=== PATIENT | female | born 2000 | race Caucasian/White ===

== ENCOUNTER → 2023-09-12 | Outpatient (CLI) | payer OTHER ==
--- NOTE | 2023-09-12 15:23 | US ---
EXAMINATION TYPE: US pelvic complete DATE OF EXAM: 09/12/2023 COMPARISON: NONE CLINICAL INDICATION: Female, 23 years old with history of N92.0 EXCESS MENSTRUATION L68.0 HURTUISM; right pelvic pain. Depo shot TECHNIQUE: Transabdominal (TA). Date of LMP: unknown. couple of months ago EXAM MEASUREMENTS: Uterus: 6.6 x 2.7 x 4.1 cm Endometrial Stripe: 0.5 cm Right Ovary: 4.8 x 4.7 x 3.6 cm Left Ovary: 3.0 x 2.4 x 2.2 cm 1. Uterus: Anteverted wnl 2. Endometrium: appears wnl 3. Right Ovary: cystic lesion with septation = 3.3 x 3.9 x 3.1cm 4. Left Ovary: follicles noted 5. Bilateral Adnexa: wnl 6. Posterior cul-de-sac: wnl Unremarkable anteverted uterus with normal thickness endometrium. Left ovary is unremarkable. Thin-wa lled anechoic cyst within the right ovary with thin septation. Most likely benign. No free fluid. IMPRESSION: No ultrasound evidence for acute process.
== END | disposition home or self-care (01) ==
LOC: RADUSWWP 14:27
PROVIDERS: ATTEND Family Medicine
DX: N92.0 Excessive and frequent menstruation with regular cycle (principal); L68.0 Hirsutism; R10.2 Pelvic and perineal pain
CPT/HCPCS: 76856